=== PATIENT | female | born 1970 | race Caucasian/White ===

== ENCOUNTER 2022-06-06 10:01 | Emergency (ER) | payer BC ==
[2022-06-06] VITALS (8 sets, daily range): BP systolic 97–131; BP diastolic 59–93
[~2022-06-06] VITALS: Ht 170.2 cm; Wt 64.0 kg
[2022-06-06] MEDS ORDERED: MELOXICAM7.5 MG PO (10:35)
[2022-06-06] MEDS ORDERED: DIAZEPAM2 MG PO (10:35)
[2022-06-06] MEDS ORDERED: METHOCARBAMOL500 MG PO (10:35)
[2022-06-06] MEDS ORDERED: NAPROXEN500 MG PO (13:45)
[2022-06-06] MEDS ORDERED: CYCLOBENZAPRINE10 MG PO (13:45)
[2022-06-06] MEDS ORDERED: LORTAB 1010 MG PO (13:45)
[2022-06-06] MEDS ORDERED: PREDNISONE10 MG PO (13:45)
[2022-06-06] MEDS ORDERED: HYDROCO/APAP1 TA9 PO (13:46)
== END 2022-06-06 14:22 | disposition home or self-care (01) | DRG 563 ==
LOC: ED 10:01
DX: S39.012A Strain of muscle, fascia and tendon of lower back, initial encounter (principal); X58.XXXA Exposure to other specified factors, initial encounter